=== PATIENT | female | born 1995 | race American Indian/Alaskan Native ===

== ENCOUNTER 2022-07-07 06:01 | Inpatient (IN) | payer OTHER ==
[2022-07-02 10:03] LABS: Hematocrit 33.4 % (30.3-42.9); Hemoglobin 11.6 gm/dl (10.1-14.3); Mean Corpuscular HGB Conc 35 % (30-34); Mean Corpuscular Volume 81 fl (79-97); Platelet Count 174 K/mm3 (140-440); Red Blood Count 4.12 M/mm3 (3.65-5.03)
--- NOTE | 2022-07-06 14:46 | History and Physical Report ---
History of Present Illness Date of examination: 07/02/22 History of present illness: Patient presented to labor and delivery for scheduled repeat section Menstrual History Regularity: regular Menses every: 28 days Duration: 6 LMP: 09/25/2021 LMP reliability: month known LMP character: normal test type: urine test Date: 11/21/2021 BC at conception: none Planned ? no EDC Calculations LMP: 07/02/2022 EDC Confirmation: 07/16/2022 Past History : 5 Term Births: 4 Premature Births: 0 Living Children: 4 Para: 4 Mult. Births: 0 Prev : 4 Prev. attempt? none Aborta: 0 Elect. Ab: 0 Spont. Ab: 0 Ectopics: 0 # 1 Delivery date: 10/15/2014 Weeks Gestation: 39 labor: no Delivery type: Anesthesia type: spinal Delivery location: [place] Infant Sex: Male weight: 7-0 Name: Regla Comments: Breech # 2 Delivery date: 07/30/2016 Weeks Gestation: 39 labor: no Delivery type: Anesthesia type: spinal Delivery location: [place] Infant Sex: Female weight: 6-? Name: Malena # 3 Delivery date: 05/23/2018 Weeks Gestation: 39 labor: no Delivery type: Delivery location: [place] Infant Sex: Male weight: 7-? Name: Octavia # 4 Delivery date: 08/25/2020 Weeks Gestation: 39 labor: no Delivery type: Anesthesia type: spinal Delivery location: [place] Infant Sex: Male weight: 8- Name: Scot Past Medical History: Negative Past Medical History Past Surgical History: (2014) (2015) (2017) (2019) Family History Summary: Other Family Member - Has No Family History of Ovarvian Cancer - Entered On: 02/15/2022 Other Family Member - Has No Family History of Colon Cancer - Entered On: 02/15/2022 Other Family Member - Has No Family History of Breast Cancer - Entered On: 02/15/2022 Social History: Marital Status: Single Children: 4 Occupation: Unemployed Smoking History: Patient has never smoked. Risk Factors: Smoked Tobacco Use: Never smoker Smokeless Tobacco Use: Never Counseled to Quit/Cut Down: yes Passive Smoke Exposure: no HIV High Risk Behavior: low risk Caffeine Use: 1 drinks per day Exercise: yes Times/wk: 2 Seatbelt Use: 100 % No Dietary Counseling Reason: pn yes Alcohol Use: yes Drinks per day: social Past Medical History Surgery (Non-ux consultant): (2014) (2016) (2017) (2019) Abnormal PAP: negative Uterine Anomaly: negative Social Hx: Marital Status: Single Children: 4 Occupation: Unemployed Smoking History: Patient has never smoked. Infection History Hx of STD: gonorrhea HIV Risk Eval: low risk Hepatitis B Risk Eval: low risk Personal hx. of genital herpes: no Infection History Comments: Chlamydia Genetic History Congenital Heart Defect: Mom: no Dad: no [place] Disease: Mom: no Dad: no Thalassemia Mom: no Dad: no Neural Tube Defect Mom: no Dad: no Down's Syndrome Mom: no Dad: no Marlon-Sachs Mom: no Dad: no Sickle Cell Disease/Trait Mom: yes Dad: no Comments: Trait Hemophilia Mom: no Dad: no Muscular Dystrophy Mom: no Dad: no Cystic Fibrosis Mom: no Dad: no Shena Chorea Mom: no Dad: no Mental Retardation Mom: no Dad: no Fragile X Mom: no Dad: no Other Genetic/Chromosomal Disorder Mom: no Dad: no Child w/other defect Mom: no Dad: no Enviromental Exposures Xray Exposure: no Medication, drug, or alcohol use since LMP: no Chemical/Other Exposure: no Exposure to Cat Liter: no Current Allergies (reviewed today): No known allergies Past History Past Medical History: other (SEE HPI) Past Surgical History: section, other (SEE HPI) Family/Genetic History: other (SEE HPI) Social history: full code, other (SEE HPI) - Obstetrical History Expected Date of Delivery: 07/16/22 Actual Gestation: 38 Week(s) 5 Day(s) : 5 Para: 4 Hx # Term Pregnancies: 4 Number of Pregnancies: 0 Spontaneous Abortions: 0 Induced : 0 Number of Living Children: 4 Medications and Allergies Allergies Allergy/AdvReac Type Severity Reaction Status Date / Time No Known Allergies Allergy Verified 07/01/22 10:52 Home Medications Medication Instructions Recorded Confirmed Last Taken Type Vit-Fe Fumar-FA [ 1 tab PO QDAY 07/01/22 07/01/22 Unknown History Vitamin] Review of Systems All systems: negative Constitutional: other - Vital Signs Vital signs: Vital Signs Temp Pulse Resp BP Pulse Ox 98.1 F 78 16 114/55 99 07/02/22 09:35 07/02/22 09:35 07/02/22 09:35 07/02/22 09:35 07/02/22 09:35 Temp Pulse Resp BP Pulse Ox 98.1 F 78 16 114/55 99 07/02/22 09:35 07/02/22 09:35 07/02/22 09:35 07/02/22 09:35 07/02/22 09:35 - Physical Exam Breasts: Positive: deferred Cardiovascular: Regular rate Lungs: Positive: Normal air movement Abdomen: Positive: normal appearance, soft Genitourinary (Female): Positive: normal external genitalia Uterus: Positive: enlarged Extremities: Positive: edema - Obstetrical FHR: auscultation normal Uterine Contraction Pattern: Absent Results Result Diagrams: 07/02/22 09:45 All other labs normal. Assessment and Plan - Patient Problems (1) Previous section Current Visit: No Status: Acute Plan to address problem: Discuss the risks of the surgery including infection, bleeding possibly heavy enough to require a blood transfusion, possible damage to bowel, bladder or ureter. Patient understands she has increased risk of adjacent organ damage due to her previous abdominal surgery. Her questions were answered. Patient understands and desires to proceed (2) 38 to 41 weeks gestation of Current Visit: No Status: Acute (3) 38 weeks gestation of Current Visit: No Status: Acute
[2022-07-07] MEDS ORDERED: BICITRA ORAL LIQD 30ML PO ONE (07:00)
[2022-07-07] MEDS ORDERED: METOCLOPRAMIDE 10 MG/2 ML INJ IV ONE (07:00)
[2022-07-07] MEDS ORDERED: ceFAZolin/Water 2 GM/20 ML 2 GM/20 ML SYRINGE IV NR (07:00)
[2022-07-07] MEDS ORDERED: FAMOTIDINE 20 MG/2 ML INJ IV ONE (07:00)
[2022-07-07] MEDS: LACTATED RINGERS 1,000 ML IV SCH ×2 (07:37→10:43)
[2022-07-07] MEDS ORDERED: ceFAZolin/STERILE WATER 2 GM/20 ML SYRINGE IV ONE (07:48)
[2022-07-07] MEDS ORDERED: OXYTOCIN DRIP 30 UNITS/500 ML BAG IV SCH ×2 (08:00→11:34)
[2022-07-07] MEDS ORDERED: ONDANSETRON 4 MG/2 ML INJ ONE (08:12)
[2022-07-07] MEDS ORDERED: ePHEDrine SULFATE 50 MG/1 ML INJ ONE (08:12)
[2022-07-07] MEDS ORDERED: SODIUM CHLORIDE 0.9% 100 ML ONE (08:12)
[2022-07-07] MEDS ORDERED: BUPIVACAINE/PF (0.25%) 2.5 MG/ML 30 ML VIAL INFILTRATI ONE (08:12)
[2022-07-07] MEDS ORDERED: PHENYLEPHRINE/NS 1,000 MCG/10 ML SYRINGE (OR USE) IV ONE (08:12)
[2022-07-07] MEDS ORDERED: LACTATED RINGERS 1,000 ML ONE (08:50)
[2022-07-07] MEDS ORDERED: KETOROLAC 30 MG/1 ML INJ ONE (09:12)
--- NOTE | 2022-07-07 09:45 | Anesthesia Consultation ---
Anesthesia Consult and Med Hx Date of service: 07/07/22 - Airway Anesthetic Teeth Evaluation: Good ROM Head & Neck: Adequate Mental/Hyoid Distance: Adequate Mallampati Class: Class II Intubation Access Assessment: Probably Good - Pulmonary Exam CTA: Yes - Cardiac Exam Cardiac Exam: RRR - Pre-Operative Health Status ASA Pre-Surgery Classification: ASA2 Proposed Anesthetic Plan: Spinal Nerve Block: Kingsley Tap - Pulmonary Hx Smoking: No Hx Asthma: No Hx Respiratory Symptoms: No SOB: No COPD: No Home Oxygen Therapy: No Hx Pneumonia: No Hx Sleep Apnea: No - Cardiovascular System Hx Hypertension: No Hx Coronary Artery Disease: No Hx Heart Attack/AMI: No Hx Angina: No Hx Percutaneous Transluminal Coronary Angioplasty (PTCA): No Hx Cardia Arrhythmia: No Hx Pacemaker: No Hx Internal Defibrillator: No Hx Valvular Heart Disease: No Hx Heart Murmur: No Hx Peripheral Vascular Disease: No - Central Nervous System Hx Neuromuscular Disorder: No Hx Seizures: No CVA: No Hx Back Pain: Yes (DUE TO ) Hx Psychiatric Problems: No - Gastrointestinal Hx Ulcer: No Hx Gastroesophageal Reflux Disease: No - Endocrine Hx Renal Disease: No Hx End Stage Renal Disease: No Hx Cirrhosis: No Hx Liver Disease: No Hx Insulin Dependent Diabetes: No Hx Non-Insulin Dependent Diabetes: No Hx Thyroid Disease: No Hx Hypothyroidism: No Hx Hyperthyroidism: No - Hematic Hx Anemia: No Hx Sickle Cell Disease: No (Per patient has sickle cell trait) - Other Systems Hx Alcohol Use: No Hx Substance Use: No Hx Cancer: No Hx Obesity: No
--- NOTE | 2022-07-07 09:46 | Progress Note ---
Spinal Anesthesia Block - Spinal Anesthesia Block Start Time: 07:48 Stop Time: :53 Performed by:: ANA LAND Procedure: The patient was placed in a sitting position on the OR table and monitors applied. A timeout was performed immediately prior to the start of the procedure. The patient was Prepped and draped in a sterile fashion and the skin was localized with 3 mL 1% lidocaine at L[4]-L[5] interspace. An introducer was placed into the back between L4-L5 and a 25g spinal needle was advanced into the intrathecal space until clear, free flowing CSF was observed. 1.8cc of 0.75% hyperbaric bupivacaine + 5mcg Precedex was injected into the intrathecal space and the spinal needle was removed. The patient tolerated the procedure well and there were no immediate complications noted.
--- NOTE | 2022-07-07 09:46 | Anesthesia Day of Surgery ---
Anesthesia Day of Surgery - Day of Surgery Patient Examined: Yes Patient H&P Reviewed: Yes Patient is NPO: Yes Beta Blockers: No Cardiac Clearance: No Pulmonary Clearance: No Roger's Test: N/A
--- NOTE | 2022-07-07 09:47 | Progress Note ---
Regional Anesthesia Block - Regional Anesthesia Block Start Time: : Stop Time: : Performed By:: ANA LAND Procedure: After her C/S was completed a time out was performed prior to the start of the procedure. The Trans Abdominal Plane was identified bilaterally via ultrasound. The skin was prepped bilaterally with chlorhexidine and a 22g stimuplex needle was advanced to the area between the internal oblique muscle and the trans abdominal plane. Marcaine 0.25% 30mlwas injected under ultrasound guidance on the left and right side. Negative aspiration every 5mL, There was no change in the patients heart rate or rhythm and the patient tolerated the procedure well. No apparent complications were observed.
[2022-07-07] MEDS ORDERED: PROMETHAZINE 25 MG TAB PO PRN (10:00)
[2022-07-07] MEDS ORDERED: MORPHINE 4 MG/1 ML INJ IV PRN (10:00)
[2022-07-07] MEDS ORDERED: fentaNYL-BUPIV 2 MCG/ML-0.125% 200 MCG/100 ML BAG EPIDURAL SCH (10:00)
[2022-07-07] MEDS ORDERED: PROMETHAZINE 25 MG RECT SUPP PR PRN (10:00)
[2022-07-07] MEDS ORDERED: ONDANSETRON 4 MG/2 ML INJ IV PRN ×2 (10:00→11:34)
[2022-07-07] MEDS ORDERED: HYDROmorphone 1 MG/1 ML INJ IV PRN ×2 (10:00)
[2022-07-07] MEDS ORDERED: diphenhydrAMINE 50 MG/ML VIAL IV PRN (10:00)
[2022-07-07] MEDS ORDERED: NALOXONE 0.4 MG/1 ML INJ IV PRN ×2 (10:00→11:34)
[2022-07-07] MEDS ORDERED: HYDROmorphone 0.5 MG/0.5 ML INJ IV PRN (11:00)
[2022-07-07] MEDS ORDERED: LANOLIN/ZINC/DIMETHICONE (LANSINOH) 7 GM TP PRN (11:34)
[2022-07-07] MEDS ORDERED: D5W/LACTATED RINGERS 1,000 ML IV SCH (11:34)
[2022-07-07] MEDS ORDERED: ACETAMINOPHEN 325 MG TAB PO PRN (11:34)
[2022-07-07] MEDS ORDERED: WITCH HAZEL/ GLYCERIN PAD TP PRN (11:34)
[2022-07-07] MEDS ORDERED: MAGNESIUM HYDROXIDE (MOM) ORAL LIQD UDC PO PRN (11:34)
[2022-07-07] MEDS ORDERED: SIMETHICONE 80 MG CHEW TAB PO PRN (11:34)
[2022-07-07] MEDS: KETOROLAC 30 MG/1 ML INJ IV SCH ×2 (13:16→17:15)
--- NOTE | 2022-07-07 13:43 | Operative Report ---
Operative Report Operative Report: Date of procedure: July 07, 2022 Pre-operative diagnosis: Intrauterine at 38 weeks 5 days with previous section x4 Post-operative diagnosis: Same Procedure name(s): Repeat low-transverse section Surgeon: Crow Matos MD Real Estate Executive Assistant: YOSEF Anesthesia: Spinal EBL: Quantitative blood loss 796 cc Complications: None Findings: Patient with very thin scarred fascia with adhesions between the anterior uterine wall and the bladder. Patient with normal tubes and ovaries bilaterally. Had a female weight 7 pounds 0 ounces Apgars 8 at 1 minute and 9 at 5 minutes Specimen(s): None Procedure: The patient was brought to the operating room. A spinal was placed without any complications. She was then placed in left lateral tilt. Prepped and draped in the usual sterile manner. After testing for adequate anesthesia level, a Pfannenstiel incision was made through her previous scar. This incision was taken down to the fascia. The fascia was then nicked in the midline. This incision was extended out laterally with Hodges scissors. The fascia was then sharply and bluntly from the underlying rectus muscles. The rectus muscles were bluntly and sharply . The peritoneum was then entered with the wet crown blocking operator's fingers. This incision was spread vertically with care not to damage the bladder below. The Harlan self-retaining tractor was then placed without any difficultyThe bladder flap was then formed sharply and bluntly with Metzenbaum scissors. A transverse incision was made in lower uterine segment. This incision was extended laterally with the operators fingers. The amniotic sac was then entered bluntly with the wet crown blocking operator's fingers. The infant was delivered from the vertex position with assistance of a vacuum. The was bulb suction on the mother's abdomen. Cord was double clamped and cut after minute delay. The infant was then passed to the nursery personnel who were in attendance. The above scores were given by the nursery personnel. The placenta was then bluntly removed. The uterus was then externalized and wiped clean the remaining products. The uterine incision was closed in layers. The first incision was closed in a locking manner using 0 Vicryl. This was followed by imbricating stitch also with 0 Vicryl. This closure was hemostatic after additional [id number]-hp-[id number] sutures. The bladder flap was copiously irrigated and found to be hemostatic. The pelvis was copiously irrigated and found to be hemostatic. The uterus was then placed back to the patient's abdomen. The retractors were removed. Surgicel was placed along the uterine closure. The rectus muscles were inspected and found to be hemostatic. The fascia was then closed in a running manner using 0 Vicryl. This incision was hemostatic irrigation Bovie. The skin was reapproximated with 4-0 Vicryl subcuticularly. The patient tolerated procedure well. Her urine was clear. The was admitted to the well baby nursery. The patient was accompanied to recovery room in good condition. Instrument count correct x3.
[2022-07-07] MEDS: oxyCODONE /ACETAMINOPHEN 5-325MG TAB PO PRN (22:12)
[2022-07-07] MEDS: ceFAZolin/NS 1 GM/50 ML 1 GM/50 ML BAG IV SCH ×3 (22:30→22:39)
[2022-07-08] MEDS: KETOROLAC 30 MG/1 ML INJ IV SCH ×2 (00:15→05:33)
[2022-07-08 01:19] LABS: Hemoglobin 10.6 gm/dl (10.1-14.3)
[2022-07-08] MEDS: oxyCODONE /ACETAMINOPHEN 5-325MG TAB PO PRN ×3 (04:33→17:26)
[2022-07-08] MEDS: ceFAZolin/NS 1 GM/50 ML 1 GM/50 ML BAG IV SCH (05:38)
[2022-07-08] MEDS ORDERED: IBUPROFEN 600 MG TAB PO PRN (06:00)
--- NOTE | 2022-07-08 08:39 | Progress Note ---
Assessment and Plan continue post op pathway, discharge expected and desired by patient tomorrow. - Patient Problems (1) delivery delivered Onset Date: ~07/07/22 Current Visit: Yes Status: Acute Subjective - Subjective Date of service: 07/08/22 Principal diagnosis: s/p repeat Patient reports: appetite normal, voiding normally, pain well controlled, flatus, ambulating normally : doing well (breast and bottle feeding well) Objective - Vital Signs Latest vital signs: Vital Signs Temp Pulse Resp BP BP Pulse Ox Pulse Ox 07/08/22 07:40 97.8 F 67 18 98/51 96 07/08/22 07:35 98 07/08/22 04:50 97.9 F 61 18 106/60 97 07/08/22 04:33 18 100 07/08/22 00:19 98.1 F 66 20 112/64 99 07/07/22 23:10 99 07/07/22 22:12 18 07/07/22 22:04 99 07/07/22 20:17 98.3 F 69 20 114/56 100 07/07/22 19:30 99 07/07/22 15:48 98.7 F 70 18 110/42 100 07/07/22 11:46 97.3 F L 66 20 100/71 100 07/07/22 10:50 100 07/07/22 10:33 97.5 F L 72 16 114/51 99 07/07/22 10:15 74 14 110/51 99 07/07/22 10:00 86 18 96/62 99 07/07/22 09:45 95 H 15 115/49 98 07/07/22 09:30 71 15 111/51 96 07/07/22 09:25 78 15 100/50 96 07/07/22 09:20 90 16 119/44 96 07/07/22 09:16 97.6 F 86 16 112/51 97 Intake and Output 07/07/22 07/08/22 07/08/22 23:59 07:59 15:59 Intake Total 290 400 Output Total 2700 1200 Balance -2410 -800 Intake: IV 50 ANCEF/NS 1 GM/50 ML 1 gm 50 In 50 ml @ 100 mls/hr IV Q8H [facility] Rx#:[id number] Oral 240 400 Output: Urine 2700 1200 Indwelling Catheter 1900 Uretheral (Andrade) 400 Void 400 1200 Other: Total, Intake Amount 240 200 Total, Output Amount 400 800 # Voids Indwelling Catheter 1 Void 1 - Exam Narrative Exam: Pt doing well, ambulating, pain well controlled, regular diet this AM. VSSAF. Incision intact with surgical glue, clean and dry. Breast and bottle feeding well. Breasts: Present: normal Cardiovascular: Present: Regular rate Lungs: Present: Clear to auscultation Abdomen: Present: normal appearance, soft, normal bowel sounds Uterus: Present: normal, fundal height at umbilicus Extremities: Present: normal Deep Tendon Reflex Grade: Normal +2 Incision: Present: normal, dry, intact - Labs Labs: Post op H&H 10.6/32.0
[2022-07-08] MEDS ORDERED: TETANUS,DIPH,PERTUSS(ACELL) VACCINE 0.5 ML SYRINGE IM ONE (09:53)
[2022-07-08] MEDS ORDERED: MEASLES, MUMPS & RUBELLA 12,500 UNIT/0.5 ML VACCINE SUB-Q ONE (09:53)
[2022-07-08] MEDS: PRENATAL VIT27-FE FUMARATE-FOLIC ACID VIT TAB PO SCH (10:24)
[2022-07-09] MEDS: oxyCODONE /ACETAMINOPHEN 5-325MG TAB PO PRN (01:05)
--- NOTE | 2022-07-09 07:04 | Discharge Summary ---
Providers - Providers Date of Admission: 07/07/22 06:01 Date of discharge: 07/09/22 Attending physician: EN HUANG 07/07/22 11:34 Consult to Regional Extension Service Specialist [CONS] Routine Reason For Exam: Primary care physician: EN HUANG Hospitalization Condition: Good Pertinent studies: H/H Disposition: 01 HOME / SELF CARE / HOMELESS Final Discharge Diagnosis (Prints w/discharge instructions): S/P Rpt c/s Time spent for discharge: 20 Core Measure Documentation - Palliative Care Palliative Care/ Comfort Measures: Not Applicable - Core Measures Any of the following diagnoses?: none Exam - Physical Exam Narrative exam: Pt in bed, no complaints voiced. Fundus firm, lochia normal. Currently breast and formula feeding. Desires Depo for BC. Depo ordered. Discussed f/u at office in a week for incision check. Discharge planning for today. - Constitutional Vitals: Temp Pulse Resp BP Pulse Ox 98.3 F 72 18 112/62 99 07/09/22 00:53 07/09/22 00:53 07/09/22 01:05 07/09/22 00:53 07/09/22 02:05 General appearance: Present: no acute distress, well-nourished - EENT Eyes: Present: PERRL ENT: hearing intact, clear oral mucosa - Neck Neck: Present: supple, normal ROM - Respiratory Respiratory effort: normal Respiratory: bilateral: CTA - Cardiovascular Rhythm: regular Heart Sounds: Present: S1 & S2. Absent: rub, click - Extremities Extremities: pulses symmetrical, No edema Peripheral Pulses: within normal limits - Abdominal General gastrointestinal: Present: soft, non-tender, non-distended, normal bowel sounds Female genitourinary: Present: normal - Integumentary Integumentary: Present: clear, warm, dry - Musculoskeletal Musculoskeletal: gait normal, strength equal bilaterally - Psychiatric Psychiatric: appropriate mood/affect, intact judgment & insight - Neurologic Neurologic: moves all extremities - Additional findings Additional findings: Lower abd c/s site Open to air, clean dry and intact. No s/s of infection noted. Plan Activity: advance as tolerated Weight Bearing Status: Non-Weight Bearing Diet: regular Wound: open to air, keep clean and dry Follow up with: EN HUANG MD [Primary Care Provider] - 7 Days (Congratulations! Thanks for allowing us to care for you. Please call office at [phone] for an appointment for incision check in 1 week. Also, schedule appointment in 4-6 weeks. Please call office if you have any questions or concerns after discharge.) Prescriptions: Ferrous Sulfate [Feosol 325 MG tab] 325 mg PO BID #60 tablet Ibuprofen [Motrin] 800 mg PO TID PRN #30 tablet PRN Reason: Pain oxyCODONE /ACETAMINOPHEN [Percocet 5/325 mg] 1 tab PO Q6HR PRN #20 tablet PRN Reason: Pain
[2022-07-09] MEDS ORDERED: medroxyPROGESTERone ACETATE 150 MG/ML SYRINGE IM NR (09:00)
[2022-07-09] MEDS: PRENATAL VIT27-FE FUMARATE-FOLIC ACID VIT TAB PO SCH (12:02)
[2022-07-09 16:35] VITALS: BP 98/59
--- NOTE | 2022-07-10 05:50 | Post Anesthesia Evaluation ---
- Post Anesthesia Evaluation Patient Participated: No Airway Patent: Yes Stable Respiratory Function: Yes Nausea/Vomiting: No Temp > 96.8F: Yes Pain Manageable: Yes Adequeate Hydration: Yes Anesthesia Complications: No Block Receding Appropriately: Yes Patient on Ventilator: No
== END 2022-07-09 17:00 | disposition home or self-care (01) | DRG 766 ==
LOC: APU 06:01 → OB 10:55
PROVIDERS: ADMIT Obstetrics & Gynecology; ATTEND Obstetrics & Gynecology
PROC: 10D00Z1 Extraction of Products of Conception, Low, Open Approach (ICD-10-PCS; principal; 2022-07-07)
PROC: 3E0234Z Introduction of Serum, Toxoid and Vaccine into Muscle, Percutaneous Approach (ICD-10-PCS; 2022-07-08)
PROC: 3E0134Z Introduction of Serum, Toxoid and Vaccine into Subcutaneous Tissue, Percutaneous Approach (ICD-10-PCS; 2022-07-08)
DX: O34.211 Maternal care for low transverse scar from previous cesarean delivery (principal); Z37.0 Single live birth; Z3A.38 38 weeks gestation of pregnancy; Z20.822 Contact with and (suspected) exposure to COVID-19; Z23 Encounter for immunization
CPT/HCPCS: 36415; 85014; 85018; 85027; 86592; 86850; 86900; 86901; G0378; J3490; J7121; J0690; J1050; J1885; J2370; J2405; J2765; J7120; U0003